=== PATIENT | male | born 1990 | race Caucasian/White ===

== ENCOUNTER 2022-01-18 15:54 | Outpatient (CLI) | payer BC, SELFPAY ==
[2022-01-18 17:31] LABS: Chloride* 102 mmol/L (96-114); Potassium* 3.8 mmol/L (3.6-5.1); Sodium* 140 mmol/L (135-149)
[2022-01-18 17:33] LABS: Cholesterol* 170 mg/dL (90-199); Creatinine* 0.7 mg/dL (0.5-1.5); Estimated Glomerular Filt Rate 125 ml/min
[2022-01-18 17:34] LABS: Blood Urea Nitrogen* 13 mg/dL (5-24); Calcium* 9.1 mg/dL (8.4-10.6); Carbon Dioxide* 25 mmol/L (20-32); Glucose* 124 mg/dL (60-115); Triglycerides* 217 mg/dL (40-149)
[2022-01-18 17:35] LABS: HDL Cholesterol* 37 mg/dL (>=40); LDL Cholesterol Calculated 90 mg/dL (<100)
== END 2022-01-18 15:55 | disposition home or self-care (01) ==
PROVIDERS: PCP Family Medicine; Visit Provider Family Medicine
DX: Z00.00 Encounter for general adult medical examination without abnormal findings (principal); E66.01 Morbid (severe) obesity due to excess calories; I10 Essential (primary) hypertension; Z13.6 Encounter for screening for cardiovascular disorders
CPT/HCPCS: 80048; 80061; 84443

== ENCOUNTER 2022-05-07 12:29 | Emergency (ER) | payer BC, SELFPAY ==
[2022-05-07 12:44] VITALS: BP 141/90; PULSE 96; RESP 18; TEMP 36.8; O2SAT 97; BMI 52.2
[2022-05-07 13:39] LABS: PCR FLU A Negative PCR FLU A (Negative); PCR FLU B Negative PCR FLU B (Negative); PCR RSV Negative PCR RSV (Negative)
[2022-05-07 13:41] LABS: SARS PCR* Negative SARS-CoV-2 (Negative)
--- NOTE | 2022-05-07 14:11 | ED_ITS ---
HPI - General Adult General Time Seen by Provider: 14:11 Date Seen: 05/07/22 Chief complaint: Cough Stated complaint: Cough/exhaustion/sinus Time Seen by Provider: 05/07/22 14:11 Source: patient, RN notes reviewed and old records reviewed Mode of arrival: ambulatory Limitations: no limitations History of Present Illness HPI narrative: Bull is a very pleasant 31-year-old gentleman with a history of hypertension, obesity, recent exposure to children with respiratory illnesses who comes to the emergency room for evaluation regarding sinus pressure and a cough. Patient had the onset of symptoms on FridayMay 04. He notes that he has been coughing up a green substance. He states that the cough is almost as bad as when he had COVID back in November of 2021. He notes that his cough never really went away. He states that he is not short of breath and he has no chest pain. He describes sinus pressure without significant drainage. Denies a heada jarred or ear pain. He has not had any nausea vomiting or diarrhea. Daughter with diagnosis of pneumonia today after having onset of symptoms on May 04. Bull brings his son with him as well who has fever and a cough. Related Data Previous Rx's Medication Instructions Recorded escitalopram oxalate 20 mg tablet 20 mg PO QDAY #90 tabs 04/05/22 lisinopril 20 1 tab PO QDAY #90 tabs 04/05/22 mg-hydrochlorothiazide 12.5 mg tablet amoxicillin 875 mg tablet 875 mg PO BID #20 tabs 05/07/22 Allergies Allergy/AdvReac Type Severity Reaction Status Date / Time No Known Drug Allergies Allergy Verified 04/05/22 12:59 Review of Systems Status of ROS: Reports: 10 or more systems reviewed and unremarkable except as noted in History and below Const: Denies: fever or fatigue Eyes: Denies: change in vision ENMT: Denies: throat pain, neck pain, throat swelling or difficulty swallowing Cardio: Denies: chest pain, palpitations, swelling of feet/ankles, lightheadedness or shortness of breath with exertion Resp: Reports: cough and change in phlegm color (Green); Denies: shortness of breath, wheezing, stridor or coughing up blood GI: Denies: abdominal pain, nausea, vomiting, diarrhea or difficulty swallowing : Denies: painful urination Musculo: Denies: neck pain Neuro: Reports: headache (Sinus pressure) Endo: Denies: fatigue Allergy/Immuno: Denies: throat swelling or wheezing PFSH PFSH Medical History Daytime somnolence MARCELLO (generalized anxiety disorder) Hypertension Morbid exogenous obesity Surgical History Hx of tonsillectomy Family History Mother High blood pressure Social History Narrative: , two kids, nonsmoker, no EtOH, currently unemployed Smoking Status: Never smoker Little interest or pleasure in doing things: nearly every day Feeling down, depressed, or hopeless: not at all Exam Narrative: Exam Narrative: Patient is alert and oriented. Nontoxic in appearance. Eyes are clear. No facial swelling. Head is atraumatic normocephalic Oral cavity moist mucous membranes. Neck is supple without lymphadenopathy. Left TM is with erythema especially in the superior aspect. Loss of light reflex. Right TM within normal limits. Heart with regular rate and rhythm and lungs are clear in all lung francois. Moving all extremities. No unusual rashes. Const: Vital Signs, click to edit/add: Vital Signs - 24 hr 05/07/22 12:44 Temperature 98.3 F Pulse Rate [Pulse Oximeter] 96 Respiratory Rate 18 Blood Pressure [Ri ght Upper Arm] 141/90 H Pulse Oximetry 97 Oxygen Delivery Me thod Room Air Documenting provider has reviewed patient's vital signs: yes Course Course Hospital Course: Differential diagnosis does include sinusitis other viral or bacterial in origin, pneumonia, viral or bacterial in origin, reactive airway, URI, otitis media. This most likely represents viral infection. Patient does have of the onset of a left otitis although he does not have significant pain. Vital Signs Vital signs: Initial Vital Signs Temperature 98.3 F 05/07/22 12:44 Temperature Source Temporal Artery Scan 05/07/22 12:44 Pulse Rate 96 05/07/22 12:44 Respiratory Rate 18 05/07/22 12:44 Blood Pressure 141/90 H 05/07/22 12:44 Blood Pressure Mean 107 05/07/22 12:44 Blood Pressure Position Supine 05/07/22 12:44 Pulse Oximetry 97 05/07/22 12:44 Oxygen Delivery Method 05/07/22 12:44 Vital Signs Temperature 98.3 F 05/07/22 12:44 Pulse Rate 96 05/07/22 12:44 Respiratory Rate 18 05/07/22 12:44 Blood Pressure 141/90 H 05/07/22 12:44 Pulse Oximetry 97 05/07/22 12:44 Oxygen Delivery Method 05/07/22 12:44 Temperature 98.3 F 05/07/22 12:44 Pulse Rate 96 05/07/22 12:44 Respiratory Rate 18 05/07/22 12:44 Blood Pressure 141/90 H 05/07/22 12:44 Pulse Oximetry 97 05/07/22 12:44 Oxygen Delivery Method 05/07/22 12:44 Medical Decision Making MDM Narrative Medical decision making narrative: 1. Left otitis media-amoxicillin 875 p.o. b.i.d. times 10 days. 2. URI with sinus pressure and cough -if this is bacterial amoxicillin of appropriate antibiotic. However, I do think this is likely viral and I do tell Bull would not be surprised if the other symptoms do continue. 3. Disposition-home at this time. Ibuprofen or Tylenol as needed for discomfort. Push fluids as much as possible. Return as needed for worsening symptoms such as difficulty breathing, vomiting and as needed. Medical Records Medical records reviewed: Yes I reviewed the patient's medical records Lab Data Labs: Lab Results 05/07/22 Range/Units 12:45 SARS-CoV-2 (PCR) Negative SARS-CoV-2 (Negative) Influenza Type A (PCR) Negative PCR FLU A (Negative) Influenza Type B (PCR) Negative PCR FLU B (Negative) RSV (PCR) Negative PCR RSV (Negative) Discharge Plan Discharge Clinical Impression: Acute left otitis media, URI (upper respiratory infection) Patient Disposition: Home, Self-Care Condition: Unchanged Additional Instructions: Amoxicillin as directed for ear infection. If your sinus infection is bacterial this would also be medication of choice. Ibuprofen or Tylenol as needed for discomfort. Seek medical attention for ongoing or worsening symptoms. Prescriptions: New amoxicillin 875 mg tablet 875 mg PO BID Qty: 20 0RF No Action escitalopram oxalate 20 mg tablet 20 mg PO QDAY Qty: 90 0RF lisinopril-hydrochlorothiazide 20-12.5 mg tablet 1 tab PO QDAY Qty: 90 1RF Follow Up/Referrals: Damien Santiago MD [Primary Care Provider] - Stand Alone Forms: [employer] Info Instructions
== END 2022-05-07 16:02 | disposition home or self-care (01) ==
PROVIDERS: Emergency Provider Family Medicine; PCP Family Medicine
DX: H66.92 Otitis media, unspecified, left ear (principal); J06.9 Acute upper respiratory infection, unspecified
CPT/HCPCS: 87502; 87634; 87635; 99283

== ENCOUNTER 2023-01-15 09:23 | Outpatient (CLI) | payer BC, SELFPAY | END 2023-01-15 09:24 | disposition home or self-care (01) | PROVIDERS: PCP Family Medicine; Visit Provider Family Medicine | DX: I10 Essential (primary) hypertension (principal); E66.01 Morbid (severe) obesity due to excess calories; F41.1 Generalized anxiety disorder | CPT/HCPCS: 80048; 80061 ==

== ENCOUNTER 2024-04-13 13:31 | Outpatient (CLI) | payer BC, SELFPAY | END 2024-04-13 13:32 | disposition home or self-care (01) | PROVIDERS: PCP Family Medicine; Visit Provider Family Medicine | DX: I10 Essential (primary) hypertension (principal); R53.83 Other fatigue; Z13.29 Encounter for screening for other suspected endocrine disorder | CPT/HCPCS: 80048; 84443; 85025 ==